=== PATIENT | male | born 1985 | race Caucasian/White ===

== ENCOUNTER 2017-09-20 14:09 | Emergency (ER) | payer BC, OTHER ==
--- NOTE | 2017-09-20 15:15 | UC ---
Respiratory Complaint HPI - HPI Summary HPI Summary: 31 year old male presents with complains of chest congestion and cough. - History of Current Complaint Stated Complaint: COUGH, CHEST MILAD. Time Seen by Provider: 09/20/17 15:14 Hx Obtained From: Patient Onset/Duration: Sudden Onset Severity Initially: Moderate Severity Currently: Moderate Pain Scale Used: 0-10 Numeric - 5 Aggravating Factors: Deep Breaths Associated Signs And Symptoms: Positive: Wheezing, Nasal Congestion - Allergies/Home Medications Allergies/Adverse Reactions: Allergies Allergy/AdvReac Type Severity Reaction Status Date / Time Meperidine [From Demerol HCl] Allergy Hallucinati Verified 09/20/17 15:23 ons PMH/Surg Hx/FS Hx/Imm Hx Previously Healthy: Yes - Surgical History Surgical History: None - Family History Known Family History: Positive: None - Social History Alcohol Use: None Substance Use Type: None Smoking Status (MU): Heavy Every Day Tobacco Smoker Review of Systems Constitutional: Negative Skin: Negative Eyes: Negative ENT: Sore Throat, Nasal Discharge, Sinus Congestion, Sinus Pain/Tenderness Respiratory: Negative Cardiovascular: Negative Gastrointestinal: Negative Genitourinary: Negative Motor: Negative Neurovascular: Negative Musculoskeletal: Negative Neurological: Negative Psychological: Negative All Other Systems Reviewed And Are Negative: Yes Physical Exam Triage Information Reviewed: Yes Vital Signs Reviewed: Yes Eye Exam: Normal ENT: Positive: Nasal congestion, Nasal drainage Dental Exam: Normal Neck exam: Normal Neck: Positive: 1 Respiratory Exam: Normal Cardiovascular Exam: Normal Abdominal Exam: Normal Musculoskeletal Exam: Normal Neurological Exam: Normal Psychological Exam: Normal Skin Exam: Normal Respiratory Course/Dx - Differential Dx/Diagnosis Provider Diagnoses: nasal congestion. cough. sinusitis Discharge - Discharge Plan Condition: Stable Disposition: HOME Prescriptions: Albuterol HFA INHALER* [Ventolin HFA Inhaler*] 1 puff INH Q6H PRN #1 mdi PRN Reason: Wheezing Azithromyxin NILS (NF) [Z-Nils (Zithromax) 250 mg tabs #6] 2 tab PO .TODAY, THEN 1 DAILY #6 tab Benzonatate CAP* [Tessalon 100 MG CAP*] 100 mg PO TID PRN #30 cap PRN Reason: Cough Guaifenesin-Codeine [Cheratussin AC] 1 teasp PO BEDTIME PRN #120 ml MDD 5 ml PRN Reason: Cough Patient Education Materials: Acute Bronchitis (ED) Forms: *Work Release Referrals: No Primary Care Phys,NOPCP [Primary Care Provider] -
[2017-09-20 15:23] VITALS: BP 161/82
--- NOTE | 2017-09-20 16:03 | RAD ---
INDICATION: Cough and smoker. COMPARISON: There are no prior studies available for comparison. TECHNIQUE: Dual-energy PA and lateral views of the chest were obtained. FINDINGS: The heart is within normal limits in size. Mediastinal and hilar contours appear within normal limits. The lungs are clear. No pleural effusion is present. IMPRESSION: NO EVIDENCE FOR ACTIVE CARDIOPULMONARY DISEASE.
== END 2017-09-20 16:02 | disposition home or self-care (01) ==
LOC: UCCORT 14:09
DX: R05 Cough (principal); R09.81 Nasal congestion; J32.9 Chronic sinusitis, unspecified; F17.290 Nicotine dependence, other tobacco product, uncomplicated; Z88.5 Allergy status to narcotic agent
CPT/HCPCS: 71046; 99211; G0463

== ENCOUNTER 2018-04-14 17:59 | Emergency (ER) | payer BC ==
--- OUTSIDE RECORDS SUMMARY | 2018-04-14 18:17 | XMS REPORT ---
:1985 External Reference #:[id number] Author Organization [employer] Address [address] [place] [address] Phone [phone] Care Team Providers Name Role Phone Lora Porter M.D. Care Team Information Research Electrician Unavailable Lora Porter M.D. Primary Care Physician Unavailable Payers Type Date Identification Numbers Payment Provider Subscriber Commercial Policy Number: [id number] [employer] Lorna Tang PayID: [id number] [address] [address] [place] [address] Problems Description No Information Family History Date Family Member(s) Problem(s) Comments Father Unknown Mother Unknown Social History Type Date Description Comments Cigarette Use Heavy tobacco smoker (more than 10 cigarettes/day) ETOH Use Rare Use Of Alcohol Recreational Drug Use Has Used In Past Allergies, Adverse Reactions, Alerts Date Description Reaction Status Severity Comments 09/23/2017 Demerol aggression active Moderate Medications Medication Date Status Form Strength Qnty SIG Indications Ordering Provider No Active 09/23/2017 Active Unknown Medications Vital Signs Date Vital Result Comment 03/31/2018 Weight 298.00 lb Height 63.5 inches 5'3.50" BMI (Body Mass Index) 52.0 kg/m2 BP Systolic 148 mmHg BP Diastolic 90 mmHg Heart Rate 100 /min O2 % BldC Oximetry 95 % Body Temperature 98.8 F Pain Level 0 10/08/2017 Weight 300.38 lb Height 63.5 inches 5'3.50" BMI (Body Mass Index) 52.4 kg/m2 BP Systolic 142 mmHg BP Diastolic 84 mmHg Heart Rate 104 /min O2 % BldC Oximetry 95 % Body Temperature 98.0 F Pain Level 0 09/23/2017 Weight 300.38 lb Height 63.5 inches 5'3.50" BMI (Body Mass Index) 52.4 kg/m2 BP Systolic 109 mmHg BP Diastolic 72 mmHg Heart Rate 98 /min O2 % BldC Oximetry 95 % Body Temperature 98.7 F Meriden Score 11 Neck Circumference in inches 18.5 Pain Level 0 Results Description No Information Procedures Date CPT Code Description Status 10/02/2017 37838 Sleep Study, Simultaneous Recording Of Completed Ventilation,Unattended 09/23/2017 90428 Fiberoptic Laryngoscopy,Diag. Completed Encounters Type Date Location Provider CPT E/M Dx Office Visit 10/08/2017 9:45a [place] [address] G47.33 E66.9 Office Visit 09/23/2017 11:30a Main Office Sadiq Miller M.D. 06170 R06.83 G47.9 E66.9 Plan of Care No Information Available
[2018-04-14 18:23] VITALS: BP 130/85
--- NOTE | 2018-04-14 18:45 | ED ---
Neck Pain - HPI Summary HPI Summary: 32 yr old male with posterior neck pain without trauma. 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 He denies falls, injuries. He states he has trying to use a drill on sheet rock and his right hand felt too weak to hold it up alone. Pain in neck and right arm are moderate. - History of Current Complaint Chief Complaint: UCUpperExtremity Stated Complaint: RT ARM CONCERN Time Seen by Provider: 04/14/18 18:33 Pain Intensity: 2 - Allergies/Home Medications Allergies/Adverse Reactions: Allergies Allergy/AdvReac Type Severity Reaction Status Date / Time meperidine [From Demerol] AdvReac Hallucinati Verified 04/14/18 18:23 ons Home Medications: Home Medications NK [No Home Medications Reported] 04/14/18 [History Confirmed 04/14/18] PMH/Surg Hx/FS Hx/Imm Hx Cardiovascular History: Reports: Hx Hypertension - HX OF - Surgical History Surgery Procedure, Year, and Place: hernia repair 2016 Infectious Disease History: No Infectious Disease History: Denies: Traveled Outside the [place] in Last 30 Days - Family History Known Family History: Positive: None - Social History Occupation: Employed Full-time Alcohol Use: None Substance Use Type: Reports: None Smoking Status (MU): Heavy Every Day Tobacco Smoker Type: Cigarettes Amount Used/How Often: 1 ppd Length of Time of Smoking/Using Tobacco: 20 YRS Have You Smoked in the Last Year: Yes Review of Systems Constitutional: Negative Positive: Other - neck pain, right arm pain, numbness and weakness hand radio repairman. Negative: Headache All Other Systems Reviewed And Are Negative: Yes Physical Exam Triage Information Reviewed: Yes Vital Signs On Initial Exam: Initial Vitals Temp Pulse Resp BP Pulse Ox 98.2 F 79 19 130/85 99 04/14/18 18:17 04/14/18 18:17 04/14/18 18:17 04/14/18 18:17 04/14/18 18:17 Vital Signs Reviewed: Yes Appearance: Positive: Well-Appearing, No Pain Distress Skin: Positive: Warm, Skin Color Reflects Adequate Perfusion Head/Face: Positive: Normal Head/Face Inspection Eyes: Positive: EOMI, LUKE ENT: Positive: Normal ENT inspection Neck: Positive: Supple, Nontender Respiratory/Lung Sounds: Positive: Clear to Auscultation, Breath Sounds Present Cardiovascular: Positive: RRR. Negative: Murmur Abdomen Description: Positive: Nontender Musculoskeletal: Positive: Strength/ROM Intact Neurological: Positive: Sensory/Motor Intact, Alert, Oriented to Person Place, Time, CN Intact II-III, Normal Gait, Speech Normal, Other - slight right hand radio repairman weakness compared to the left hand. Psychiatric: Positive: Normal - Adry Coma Scale Best Eye Response: 4 - Spontaneous Best Motor Response: 6 - Obeys Commands Best Verbal Response: 5 - Oriented Coma Scale Total: 15 Diagnostics - Vital Signs Vital Signs Temp Pulse Resp BP Pulse Ox 04/14/18 18:17 98.2 F 79 19 130/85 99 - Laboratory Lab Statement: Any lab studies that have been ordered have been reviewed, and results considered in the medical decision making process. Neck Course/Dx - Course Course Of Treatment: 32 yr old with radicular neck pain, numbness and feeling weak in the right hand. Recommend he go to ER for further work up and spine consult. WIll need MRI. He declines an ambulance, and states he is calling his , and the will go to [place] to the ER at [facility] for further eval. 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 You have refused an ambulance and you were offered one. your should drive you. - Billing Disposition and Condition Condition: GOOD Disposition: Home-Recommend to ED
== END 2018-04-14 18:47 | disposition home health service (06) ==
LOC: UCCORT 17:59
DX: M54.2 Cervicalgia (principal); R29.898 Other symptoms and signs involving the musculoskeletal system; I10 Essential (primary) hypertension; F17.210 Nicotine dependence, cigarettes, uncomplicated; Z88.5 Allergy status to narcotic agent
CPT/HCPCS: 99212; G0463